=== PATIENT | female | born 1950 | race Two or more races ===

== ENCOUNTER → 2018-01-02 | Outpatient (CLI) | payer BC ==
[2018-01-02 11:15] LABS: BASOPHILS % 0.7 % (0.0-2.0); EOSINOPHILS % 3.1 % (0.0-5.0); HEMATOCRIT. 41.8 % (36.0-48.0); HEMOGLOBIN. 14.2 g/dL (12.0-16.0); LYMPHOCYTES % 36.7 % (20.0-50.0); MEAN CORPUSCULAR VOLUME 91.2 fL (81.0-99.0); MEAN PLATELET VOLUME 7.2 fl (7.4-10.4); MONOCYTES % 7.1 % (2.0-8.0); NEUTROPHILS % 52.4 % (40.0-76.0); PLATELET 292 x1000/uL (130-400); RED BLOOD CELL COUNT 4.58 mill/uL (4.2-5.4); RED CELL DISTRIBUTION WIDTH 13.1 % (11.6-14.6)
[2018-01-02 12:08] LABS: CHLORIDE 102 mEq/L (98-107)
[2018-01-02 12:15] LABS: LDL CHOLESTEROL 153 mg/dL (5-100)
[2018-01-02 12:17] LABS: HDL CHOLESTEROL 82 mg/dL (40-59); T4 FREE 1.09 ng/dL (0.76-1.46)
[2018-01-02 12:27] LABS: FOLIC ACID (FOLATE) SERUM >20 ng/mL ng/mL (>5.38)
[2018-01-02 12:35] LABS: KETONES URINE NEGATIVE (NEGATIVE); LEUKOCYTE ESTERASE URINE NEGATIVE (NEGATIVE); NITRITE URINE NEGATIVE (NEGATIVE); OCCULT BLOOD URINE TRACE (NEGATIVE); PROTEIN URINE NEGATIVE (NEGATIVE); SPECIFIC GRAVITY URINE 1.014 (1.005-1.030); UROBILINOGEN URINE 0.2 E.U./dL (0.2-1.0)
[2018-01-02 12:39] LABS: VITAMIN B12 SERUM 453 pg/mL (211-911)
[2018-01-02 12:44] LABS: CLARITY URINE CLEAR (CLEAR); COLOR URINE YELLOW (YELLOW)
[2018-01-04 09:09] LABS: RF PROFILE < 10.0 IU/mL (0.0-13.9)
[2018-01-04 19:07] LABS: ANTI-NUCLEAR ANTIBODIES DIRECT Positive (Negative)
[2018-01-07 09:06] LABS: CCP IgG/IgA PROFILE 7 units (0-19)
[2018-01-08 06:15] LABS: METHYLMALONIC ACID 112 nmol/L (0-378)
== END | disposition home or self-care (01) ==
LOC: LAB 10:19
PROVIDERS: ATTEND Internal Medicine Endocrinology, Diabetes & Metabolism
DX: E78.00 Pure hypercholesterolemia, unspecified (principal); E11.9 Type 2 diabetes mellitus without complications; I10 Essential (primary) hypertension; M19.90 Unspecified osteoarthritis, unspecified site; M50.323 Other cervical disc degeneration at C6-C7 level; M50.322 Other cervical disc degeneration at C5-C6 level; M77.8 Other enthesopathies, not elsewhere classified
CPT/HCPCS: 36415; 72040; 80053; 80061; 81003; 82306; 82607; 82746; 83036; 83921; 84439; 84443; 85025; 85651; 86038; 86200; 86431; 87086

== ENCOUNTER → 2018-08-13 | Outpatient (CLI) | payer BC ==
[2018-08-13 08:16] LABS: BASOPHILS % 0.7 % (0.0-2.0); EOSINOPHILS % 3.1 % (0.0-5.0); HEMATOCRIT. 40.2 % (36.0-48.0); HEMOGLOBIN. 13.4 g/dL (12.0-16.0); LYMPHOCYTES % 35.6 % (20.0-50.0); MEAN CORPUSCULAR HEMOGLOBIN 30.9 pg (28.0-32.0); MEAN CORPUSCULAR VOLUME 92.7 fL (81.0-99.0); MEAN PLATELET VOLUME 7.3 fl (7.4-10.4); MONOCYTES % 7.7 % (2.0-8.0); NEUTROPHILS % 52.9 % (40.0-76.0); PLATELET 273 x1000/uL (130-400); RED BLOOD CELL COUNT 4.33 mill/uL (4.2-5.4); RED CELL DISTRIBUTION WIDTH 13.4 % (11.6-14.6)
[2018-08-13 08:53] LABS: CHLORIDE 103 mEq/L (98-107)
[2018-08-13 09:01] LABS: HDL CHOLESTEROL 73 mg/dL (40-59)
[2018-08-13 09:03] LABS: T4 FREE 1.22 ng/dL (0.76-1.46)
[2018-08-13 09:04] LABS: LDL CHOLESTEROL 159 mg/dL (5-100)
[2018-08-13 09:50] LABS: FOLIC ACID (FOLATE) SERUM >20 ng/mL ng/mL (>5.38)
[2018-08-13 10:01] LABS: VITAMIN B12 SERUM 520 pg/mL (211-911)
[2018-08-14 09:08] LABS: A/G RATIO 1.2 (0.7-1.7); ALPHA-1-GLOBULIN 0.2 g/dL (0.0-0.4); ALPHA-2-GLOBULIN 0.7 g/dL (0.4-1.0); BETA GLOBULIN 1.2 g/dL (0.7-1.3); GAMMA GLOBULINS 1.4 g/dL (0.4-1.8); GLOBULIN TOTAL 3.4 g/dL (2.2-3.9); M-SPIKE Not Observed g/dL (Not Observed); RF PROFILE 10.4 IU/mL (0.0-13.9); TOTAL PROTEIN SERUM 7.4 g/dL (6.0-8.5); VITAMIN D 25-OH 13.4 ng/mL (30.0-100.0)
[2018-08-15 13:11] LABS: ANTI-NUCLEAR ANTIBODIES DIRECT Positive (Negative)
[2018-08-16 09:08] LABS: CCP IgG/IgA PROFILE 8 units (0-19)
[2018-08-22 15:06] LABS: METHYLMALONIC ACID 86 nmol/L (0-378)
== END | disposition home or self-care (01) ==
LOC: LAB 07:30
PROVIDERS: ATTEND Internal Medicine Endocrinology, Diabetes & Metabolism
DX: E11.9 Type 2 diabetes mellitus without complications (principal); I10 Essential (primary) hypertension; E55.9 Vitamin D deficiency, unspecified; E66.9 Obesity, unspecified; E78.00 Pure hypercholesterolemia, unspecified
CPT/HCPCS: 36415; 80061; 82306; 82607; 82746; 83036; 83921; 84155; 84165; 84439; 84443; 85651; 86038; 86200; 86431

== ENCOUNTER 2018-10-01 19:13 | Emergency (ER) | payer BC ==
[~2018-10-01] VITALS: Ht 157.5 cm; Wt 77.0 kg
[2018-10-01] MEDS ORDERED: ACETAMINOPHEN 325MG TABLET PO ONE (19:45)
[2018-10-01 20:08] VITALS: BP 150/80
== END 2018-10-01 22:46 | disposition home or self-care (01) ==
LOC: ER 22:43
DX: R51 Headache (principal); I10 Essential (primary) hypertension
CPT/HCPCS: 99282

== ENCOUNTER → 2019-08-18 | Outpatient (CLI) | payer BC ==
[2019-08-18 09:32] LABS: CLARITY URINE CLEAR (CLEAR); COLOR URINE YELLOW (YELLOW); KETONES URINE NEGATIVE (NEGATIVE); LEUKOCYTE ESTERASE URINE 1+ (NEGATIVE); NITRITE URINE NEGATIVE (NEGATIVE); OCCULT BLOOD URINE 1+ (NEGATIVE); PROTEIN URINE NEGATIVE (NEGATIVE); UROBILINOGEN URINE 0.2 E.U./dL (0.2-1.0)
[2019-08-18 09:38] LABS: BASOPHILS % 0.6 % (0.0-2.0); EOSINOPHILS % 2.3 % (0.0-5.0); HEMATOCRIT. 41.4 % (36.0-48.0); HEMOGLOBIN. 13.8 g/dL (12.0-16.0); LYMPHOCYTES % 38.2 % (20.0-50.0); MEAN CORPUSCULAR HEMOGLOBIN 30.7 pg (28.0-32.0); MEAN CORPUSCULAR VOLUME 92.1 fL (81.0-99.0); MONOCYTES % 8.6 % (2.0-8.0); NEUTROPHILS % 50.3 % (40.0-76.0); PLATELET 305 x1000/uL (130-400); RED BLOOD CELL COUNT 4.49 mill/uL (4.2-5.4); RED CELL DISTRIBUTION WIDTH 13.2 % (11.6-14.6)
[2019-08-18 10:10] LABS: CHLORIDE 106 mEq/L (98-107)
[2019-08-18 10:17] LABS: LDL CHOLESTEROL 126 mg/dL (5-100)
[2019-08-18 10:18] LABS: HDL CHOLESTEROL 78 mg/dL (40-59)
[2019-08-18 10:19] LABS: T4 FREE 1.08 ng/dL (0.76-1.46)
[2019-08-18 11:23] LABS: VITAMIN B12 SERUM 351 pg/mL (211-911)
[2019-08-18 11:26] LABS: FOLIC ACID (FOLATE) SERUM > 20.00 ng/mL (>5.38)
[2019-08-19 09:10] LABS: *CREATININE RANDOM URINE 34.1 mg/dL (Not Estab.); MICROALBUMIN RANDOM URINE 16.3 ug/mL (Not Estab.)
[2019-08-19 15:08] LABS: ANTI-NUCLEAR ANTIBODIES DIRECT Positive (Negative)
== END | disposition home or self-care (01) ==
LOC: RAD 08:57
PROVIDERS: ATTEND Internal Medicine Endocrinology, Diabetes & Metabolism
DX: M47.812 Spondylosis without myelopathy or radiculopathy, cervical region (principal); M48.02 Spinal stenosis, cervical region; I10 Essential (primary) hypertension; E10.9 Type 1 diabetes mellitus without complications; E78.5 Hyperlipidemia, unspecified; R82.998 Other abnormal findings in urine
CPT/HCPCS: 36415; 72141; 80061; 81003; 82043; 82306; 82570; 82607; 82746; 83036; 83921; 84439; 84443; 85651; 86038; 86431

== ENCOUNTER → 2019-09-07 | Outpatient (CLI) | payer BC | END | disposition home or self-care (01) | LOC: RAD 12:15 | PROVIDERS: ATTEND Internal Medicine Endocrinology, Diabetes & Metabolism | DX: M47.812 Spondylosis without myelopathy or radiculopathy, cervical region (principal); M47.814 Spondylosis without myelopathy or radiculopathy, thoracic region; M47.817 Spondylosis without myelopathy or radiculopathy, lumbosacral region; M43.17 Spondylolisthesis, lumbosacral region; M19.90 Unspecified osteoarthritis, unspecified site | CPT/HCPCS: 72040; 72070; 72100; 73030 ==

== ENCOUNTER → 2019-11-24 | Outpatient (CLI) | payer BC ==
[2019-11-24 16:05] LABS: BASOPHILS % 0.4 % (0.0-2.0); EOSINOPHILS % 1.4 % (0.0-5.0); HEMATOCRIT. 41.1 % (36.0-48.0); HEMOGLOBIN. 13.9 g/dL (12.0-16.0); LYMPHOCYTES % 27.8 % (20.0-50.0); MEAN CORPUSCULAR HEMOGLOBIN 31.2 pg (28.0-32.0); MEAN CORPUSCULAR VOLUME 92.4 fL (81.0-99.0); MEAN PLATELET VOLUME 6.7 fl (7.4-10.4); MONOCYTES % 6.7 % (2.0-8.0); NEUTROPHILS % 63.7 % (40.0-76.0); PLATELET 292 x1000/uL (130-400); RED BLOOD CELL COUNT 4.45 mill/uL (4.2-5.4); RED CELL DISTRIBUTION WIDTH 13.1 % (11.6-14.6)
[2019-11-24 16:19] LABS: CHLORIDE 105 mEq/L (98-107)
[2019-11-24 16:29] LABS: T4 FREE 1.12 ng/dL (0.76-1.46)
[2019-11-24 16:30] LABS: HDL CHOLESTEROL 71 mg/dL (40-59); LDL CHOLESTEROL 100 mg/dL (5-100)
[2019-11-24 16:55] LABS: CLARITY URINE CLEAR (CLEAR); COLOR URINE YELLOW (YELLOW); KETONES URINE NEGATIVE (NEGATIVE); LEUKOCYTE ESTERASE URINE TRACE (NEGATIVE); NITRITE URINE NEGATIVE (NEGATIVE); OCCULT BLOOD URINE 2+ (NEGATIVE); PROTEIN URINE NEGATIVE (NEGATIVE); SPECIFIC GRAVITY URINE 1.023 (1.005-1.030); UROBILINOGEN URINE 0.2 E.U./dL (0.2-1.0)
[2019-11-26 08:11] LABS: A/G RATIO 1.1 (0.7-1.7); ALBUMIN 3.8 g/dL (2.9-4.4); ALPHA-1-GLOBULIN 0.2 g/dL (0.0-0.4); ALPHA-2-GLOBULIN 0.7 g/dL (0.4-1.0); BETA GLOBULIN 1.1 g/dL (0.7-1.3); GAMMA GLOBULINS 1.3 g/dL (0.4-1.8); GLOBULIN TOTAL 3.4 g/dL (2.2-3.9); M-SPIKE Not Observed g/dL (Not Observed); TOTAL PROTEIN SERUM 7.2 g/dL (6.0-8.5)
[2019-11-26 08:11] LABS: *CREATININE RANDOM URINE 98.7 mg/dL (Not Estab.); MICROALBUMIN RANDOM URINE 47.8 ug/mL (Not Estab.)
== END | disposition home or self-care (01) ==
LOC: LAB 15:20
PROVIDERS: ATTEND Internal Medicine Endocrinology, Diabetes & Metabolism
DX: I10 Essential (primary) hypertension (principal); E78.5 Hyperlipidemia, unspecified; E55.9 Vitamin D deficiency, unspecified; E11.9 Type 2 diabetes mellitus without complications
CPT/HCPCS: 36415; 80053; 80061; 81003; 82043; 82306; 82570; 83036; 84155; 84165; 84439; 84443; 85025

== ENCOUNTER → 2019-12-10 | Outpatient (CLI) | payer BC ==
[2019-12-10 10:34] LABS: BASOPHILS % 0.4 % (0.0-2.0); EOSINOPHILS % 1.5 % (0.0-5.0); HEMATOCRIT. 42.8 % (36.0-48.0); HEMOGLOBIN. 14.3 g/dL (12.0-16.0); LYMPHOCYTES % 29.4 % (20.0-50.0); MEAN CORPUSCULAR VOLUME 92.6 fL (81.0-99.0); MEAN PLATELET VOLUME 6.7 fl (7.4-10.4); MONOCYTES % 7.9 % (2.0-8.0); NEUTROPHILS % 60.8 % (40.0-76.0); PLATELET 282 x1000/uL (130-400); RED BLOOD CELL COUNT 4.62 mill/uL (4.2-5.4); RED CELL DISTRIBUTION WIDTH 13.5 % (11.6-14.6)
[2019-12-10 10:40] LABS: CHLORIDE 106 mEq/L (98-107)
[2019-12-10 10:46] LABS: LDL CHOLESTEROL 99 mg/dL (5-100)
[2019-12-10 10:48] LABS: HDL CHOLESTEROL 81 mg/dL (40-59)
[2019-12-11 09:09] LABS: VITAMIN D 25-OH 46.6 ng/mL (30.0-100.0)
[2019-12-11 13:09] LABS: ALBUMIN 3.6 g/dL (2.9-4.4); ALPHA-1-GLOBULIN 0.2 g/dL (0.0-0.4); ALPHA-2-GLOBULIN 0.8 g/dL (0.4-1.0); BETA GLOBULIN 1.3 g/dL (0.7-1.3); GAMMA GLOBULINS 1.3 g/dL (0.4-1.8); GLOBULIN TOTAL 3.6 g/dL (2.2-3.9); M-SPIKE Not Observed g/dL (Not Observed); TOTAL PROTEIN SERUM 7.2 g/dL (6.0-8.5)
== END | disposition home or self-care (01) ==
LOC: LAB 09:59
PROVIDERS: ATTEND Internal Medicine Endocrinology, Diabetes & Metabolism
DX: I10 Essential (primary) hypertension (principal); E11.9 Type 2 diabetes mellitus without complications; E78.5 Hyperlipidemia, unspecified; E55.9 Vitamin D deficiency, unspecified
CPT/HCPCS: 36415; 80053; 80061; 82306; 83036; 84155; 84165; 85025

== ENCOUNTER → 2019-12-16 | Outpatient (CLI) | payer BC | END | disposition home or self-care (01) | LOC: MRI 07:14 | PROVIDERS: ATTEND Internal Medicine Endocrinology, Diabetes & Metabolism | DX: M43.06 Spondylolysis, lumbar region (principal); M48.062 Spinal stenosis, lumbar region with neurogenic claudication; M79.672 Pain in left foot; M25.559 Pain in unspecified hip | CPT/HCPCS: 72146; 72148; 73521; 73630 ==

== ENCOUNTER → 2020-05-04 | Outpatient (CLI) | payer MEDICARE ==
[2020-05-04 09:53] LABS: BASOPHILS % 0.7 % (0.0-2.0); EOSINOPHILS % 2.6 % (0.0-5.0); HEMATOCRIT. 39.6 % (36.0-48.0); HEMOGLOBIN. 13.1 g/dL (12.0-16.0); LYMPHOCYTES % 32.8 % (20.0-50.0); MEAN CORPUSCULAR HEMOGLOBIN 30.5 pg (28.0-32.0); MEAN CORPUSCULAR VOLUME 92.3 fL (81.0-99.0); MEAN PLATELET VOLUME 7.3 fl (7.4-10.4); MONOCYTES % 7.2 % (2.0-8.0); NEUTROPHILS % 56.7 % (40.0-76.0); PLATELET 259 x1000/uL (130-400); RED BLOOD CELL COUNT 4.29 mill/uL (4.2-5.4); RED CELL DISTRIBUTION WIDTH 13.1 % (11.6-14.6)
[2020-05-04 10:20] LABS: CHLORIDE 109 mEq/L (98-107)
[2020-05-04 10:29] LABS: LDL CHOLESTEROL 153 mg/dL (5-100)
[2020-05-04 10:31] LABS: HDL CHOLESTEROL 65 mg/dL (40-59); T4 FREE 1.14 ng/dL (0.76-1.46)
[2020-05-04 10:53] LABS: VITAMIN B12 SERUM 478 pg/mL (211-911)
[2020-05-04 11:07] LABS: FOLIC ACID (FOLATE) SERUM > 20.00 ng/mL (>5.38)
[2020-05-05 09:11] LABS: VITAMIN D 25-OH 23.6 ng/mL (30.0-100.0)
[2020-05-05 15:06] LABS: ANTI-NUCLEAR ANTIBODIES DIRECT Positive (Negative)
[2020-05-08 14:07] LABS: METHYLMALONIC ACID 79 nmol/L (0-378)
== END | disposition home or self-care (01) ==
LOC: LAB 09:02
PROVIDERS: ATTEND Internal Medicine Endocrinology, Diabetes & Metabolism
DX: E11.9 Type 2 diabetes mellitus without complications (principal); E55.9 Vitamin D deficiency, unspecified; E78.5 Hyperlipidemia, unspecified; M47.812 Spondylosis without myelopathy or radiculopathy, cervical region
CPT/HCPCS: 36415; 80053; 80061; 82306; 82607; 82746; 83036; 83921; 84439; 84443; 85025; 85651; 86038; 86430

== ENCOUNTER → 2020-05-09 | Outpatient (CLI) | payer MEDICARE | END | disposition home or self-care (01) | LOC: LAB 11:28 | PROVIDERS: ATTEND Internal Medicine Endocrinology, Diabetes & Metabolism | DX: Z20.828 Contact with and (suspected) exposure to other viral communicable diseases (principal); R73.9 Hyperglycemia, unspecified; E78.5 Hyperlipidemia, unspecified; E55.9 Vitamin D deficiency, unspecified | CPT/HCPCS: 87635; C9803 ==

== ENCOUNTER → 2020-05-11 | Outpatient (CLI) | payer MEDICARE | END | disposition home or self-care (01) | LOC: PVL 09:30 | PROVIDERS: ATTEND Internal Medicine Endocrinology, Diabetes & Metabolism | DX: M25.551 Pain in right hip (principal); R55 Syncope and collapse; R05 Cough | CPT/HCPCS: 71046; 72195; 93880 ==